=== PATIENT | female | born 2000 | race Caucasian/White ===

== ENCOUNTER → 2021-06-30 | Outpatient (CLI) | payer OTHER ==
--- NOTE | 2021-06-30 15:33 | REP ---
INDICATION: PREG 26+ F/U ANATOMY W/ RT OVARION CYST COMPARISON: None. TECHNIQUE: Transabdominal obstetrical ultrasound with color Doppler evaluation. FINDINGS: Examination demonstrates a single live intrauterine in transverse (head to maternal left) presentation. motion is identified by technologist. Placenta is noted anterior and grade 1 without evidence for placenta previa or abruption. Amniotic fluid volume is normal. Cervix measures 4.9 cm in length and appears closed. Right maternal ovarian cyst 5.0 cm. Selected gestational age: 27 weeks 6 days with EV 09/23/2021. Gestational age by current measurements 27 weeks 3 days with EV 09/26/2021. FHR equals 158 beats per minute. BPD: 7.0 cm at 28 weeks 1 day HC: 25.4 cm at 27 weeks 4 days AC: 22.7 cm at 27 weeks 0 days FL: 5.1 cm at there is 27 weeks 3 days HL: 4.6 cm at 27 weeks 1 day HC/AC: 1.12 Estimated weight 1058 grams (42ndpercentile). Anatomical assessment demonstrates normal structures including cranium, choroid plexus, cavum, cerebellum/posterior fossa, facial features, lungs, four-chamber heart/ventricular outflow tracts, diaphragm, stomach, cord insertion/three-vessel cord, kidneys/bladder, spine, and extremities. IMPRESSION: Single live demonstrating appropriate growth and weight. Anatomical assessment is complete and normal. <Electronically signed by Asaf Lozano > 06/30/21 [id number]
== END ==
LOC: M RAD 14:29
PROVIDERS: ATTEND Registered Nurse Maternal Newborn
DX: Z36.89 Encounter for other specified antenatal screening (principal); O32.2XX0 Maternal care for transverse and oblique lie, not applicable or unspecified; Z3A.27 27 weeks gestation of pregnancy

== ENCOUNTER 2021-07-12 16:30 | Emergency (ER) | payer OTHER ==
[~2021-07-12] VITALS: Ht 157.5 cm; Wt 76.1 kg
--- OUTSIDE RECORDS SUMMARY | 2021-07-12 16:38 | CCD ---
Author Author [facility] Address Unknown Phone Unavailable Support Name Relationship Address Phone PERFECTO SALGUERO [place] [address] Re-disclosure Warning The records that you are about to access may contain information from federally-assisted alcohol or drug abuse programs. If such information is present, then the following federally mandated warning applies: This information has been disclosed to you from records protected by federal confidentiality rules (42 CFR part 2). The federal rules prohibit you from making any further disclosure of this information unless further disclosure is expressly permitted by the written consent of the person to whom it pertains or as otherwise permitted by 42 CFR part 2. A general authorization for the release of medical or other information is NOT sufficient for this purpose. The Federal rules restrict any use of the information to criminally investigate or prosecute any alcohol or drug abuse patient.The records that you are about to access may contain highly sensitive health information, the redisclosure of which is protected by Article 27-F of the [place] Public Health law. If you continue you may have access to information: Regarding HIV / AIDS; Provided by facilities licensed or operated by the [facility] Office of Mental Health; or Provided by the [facility] Office for People With Developmental Disabilities. If such information is present, then the following [facility] mandated warning applies: This information has been disclosed to you from confidential records which are protected by state law. State law prohibits you from making any further disclosure of this information without the specific written consent of the person to whom it pertains, or as otherwise permitted by law. Any unauthorized further disclosure in violation of state law may result in a fine or skilled nursing sentence or both. A general authorization for the release of medical or other information is NOT sufficient authorization for further disc losure. Medications No Information Insurance Providers Payer name Policy type / Coverage type Policy ID Covered constitution party ID Covered constitution party's relationship to roque Policy Roque Plan [facility] ACTIVE DUTY [id number] Problems, Conditions, and Diagnoses No Information Surgeries/Procedures No Information Results No Information Social History No Information
[2021-07-12] MEDS ORDERED: LIDOCAINE 1% MDV 20ML VIAL IM ONE (20:30)
--- OUTSIDE RECORDS SUMMARY | 2021-07-12 21:14 | CCD ---
Author Author [facility] Address Unknown Phone Unavailable Support Name Relationship Address Phone [facility] Next Of Kin [address] [place] [address] Unavailable PERFECTO SALGUERO Next Of Kin [place], [place] [phone] Re-disclosure Warning The records that you are [...] is protected by Article 27-F of the [facility] Public Health law. If you continue you may have access to information: Regarding HIV / AIDS; Provided by facilities licensed or operated by the [facility] Office of Mental Health; or Provided by the [facility] Office for People With Developmental Disabilities. If such information is present, then the following [facility] mandated warning applies: This information has been [...] law may result in a fine or half-way sentence or both. A general authorization for the release of medical or other information is NOT sufficient authorization for further disc losure. Medications No Information Insurance Providers Payer name Policy type / Coverage type Policy ID Covered republican ID Covered republican's relationship to roque Policy Roque Plan Information [facility] ACTIVE DUTY [id number] Problems, Conditions, and Diagnoses No Information Surgeries/Procedures No Information Results No Information Social History No Information
[2021-07-12 21:23] VITALS: BP 120/62
[2021-07-13] MEDS ORDERED: NEOSPORIN TOP OINT 15GM TOP ONE (09:00)
--- NOTE | 2021-07-13 10:21 | ED PDOC ---
Post-Departure Follow-Up addendum to visit 07/12/2021: utilizing 6-0 Prolene 6 superficial simpl e interrupted sutures were placed. tolerated well. ebl <5cc. Alyson Carrillo PA-C Jul 13, 2021 10:21
== END 2021-07-12 22:03 | disposition home or self-care (01) ==
LOC: M ED 16:30
DX: S61.412A Laceration without foreign body of left hand, initial encounter (principal); W26.0XXA Contact with knife, initial encounter; Y93.G1 Activity, food preparation and clean up; Y92.018 Other place in single-family (private) house as the place of occurrence of the external cause

== ENCOUNTER 2022-01-05 10:46 | Emergency (ER) | payer OTHER ==
[~2022-01-05] VITALS: Ht 157.5 cm; Wt 71.7 kg
[2022-01-05] MEDS ORDERED: MUCI1TAB16 PO (10:57)
[2022-01-05] MEDS ORDERED: PRIL20TA2 PO (10:57)
[2022-01-05] MEDS ORDERED: ACET-683 PO (15:53)
[2022-01-05 16:03] VITALS: BP 123/80
== END 2022-01-05 16:05 | disposition home or self-care (01) ==
LOC: M ED 10:46
DX: R07.9 Chest pain, unspecified (principal); R00.1 Bradycardia, unspecified; Z87.11 Personal history of peptic ulcer disease